=== PATIENT | male | born 2000 | race Caucasian/White ===

== ENCOUNTER → 2024-09-08 12:04 | Outpatient (REF) | payer BC, SELFPAY | LOC: DHSLP 12:04 | PROVIDERS: ATTENDING PHYSICIAN Internal Medicine Cardiovascular Disease; FAMILY PHYSICIAN Family Medicine | DX: G47.33 Obstructive sleep apnea (adult) (pediatric) (principal); R09.02 Hypoxemia | CPT/HCPCS: 95800 ==